=== PATIENT | female | born 1990 ===

== ENCOUNTER → 2017-07-04 | Outpatient (CLI) | payer OTHER ==
--- NOTE | 2017-07-04 08:58 | USB ---
Reason for exam: additional evaluation requested from abnormal screening. Physical Findings: Nurse Summary: 1cm nodule in the left breast at 12:30 (nurse dw). US Breast LT Left breast ultrasound includes all four quadrants, the retroareolar region and axilla. Finding demonstrates no cystic or solid lesion seen. Area of dense fibroglandular tissue corresponding to palpable abnormality. No suspicious findings. These results were verbally communicated with the patient and result sheet given to the patient on 07/04/17. ASSESSMENT: Benign, BI-RAD 2 RECOMMENDATION: Routine screening mammogram of both breasts at age 42. (or sooner if clinically indicated) Manage patient on a clinical basis.
== END | disposition home or self-care (01) ==
LOC: RADMAMWWP 07:30
PROVIDERS: ATTEND Obstetrics & Gynecology
DX: N63 Unspecified lump in breast (principal)

== ENCOUNTER 2019-03-11 13:15 | Emergency (ER) | payer OTHER ==
[2019-03-11 13:39] VITALS: BP 130/75; PULSE 85; RESP 16
[2019-03-11 14:16] LABS: Appearance,Urine Cloudy (Clear); Bacteria,Urine Rare /hpf; Bilirubin,Urine Negative (Negative); Blood,Urine Moderate (Negative); Color,Urine Yellow; Glucose,Urine (UA) Negative (Negative); Ketones,Urine Negative (Negative); Leukocyte Esterase,Urine Large (Negative); Mucus,Urine Occasional /hpf; Nitrite,Urine Positive (Negative); PH, Urine 6.5 (5.0-8.0); Protein,Urine 1+ (Negative); RBC,Urine 104 /hpf (0-5); Squamous Epithelial Cell,Urine <1 /hpf (0-4); Urobilinogen,Urine <2.0 mg/dL (<2.0); WBC,Urine 138 /hpf (0-5)
[2019-03-11] MEDS ORDERED: SODIUM CHLORIDE 0.9% 1,000 ML IV ONE (15:01)
[2019-03-11] MEDS ORDERED: cefTRIAXone 250 MG VIAL IM STA (15:53)
[2019-03-11] MEDS ORDERED: AZITHROMYCIN 500 MG TAB PO STA (15:53)
--- NOTE | 2019-03-11 16:07 | ED ---
Abdominal Pain HPI - General Chief Complaint: Abdominal Pain Stated Complaint: lower abd pain Time Seen by Provider: 03/11/19 14:38 Source: patient, RN notes reviewed, old records reviewed Mode of arrival: ambulatory Limitations: no limitations - History of Present Illness Initial Comments: 29-year-old female persist returned today with lower abdominal pain, dysuria, and alarming symptoms of her groin. Patient's concern for possibility of STDs. She states that she has no lesions her skin. Patient denies any significant discharge. She is currently on her menstrual cycle. - Related Data Home Medications Medication Instructions Recorded Confirmed Qrt-Enmz-Dfxca Acid 1 tab PO DAILY 12/16/14 07/30/16 [-U Capsule] Previous Rx's Medication Instructions Recorded HYDROcodone/APAP 7.5-325MG [Pacoima 1 each PO Q4H PRN #30 tab 08/01/16 7.5-325] Ibuprofen [Motrin] 600 mg PO Q6HR PRN #30 tab 08/01/16 Nitrofurantoin Monohyd/M-Cryst 100 mg PO Q12HR #12 cap 03/11/19 [Macrobid] Allergies Allergy/AdvReac Type Severity Reaction Status Date / Time codeine Allergy Intermediate Nausea & Verified 03/11/19 13:38 Vomiting Review of Systems ROS Statement: Those systems with pertinent positive or pertinent negative responses have been documented in the HPI. ROS Other: All systems not noted in ROS Statement are negative. 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 Alert and oriented. No distress. Limitations: no limitations General appearance: alert, in no apparent distress Head exam: Present: atraumatic, normocephalic, normal inspection Eye exam: Present: normal appearance, PERRL, EOMI. Absent: scleral icterus, conjunctival injection, periorbital swelling ENT exam: Present: normal exam, mucous membranes moist Neck exam: Present: normal inspection. Absent: tenderness, meningismus, lymphadenopathy Respiratory exam: Present: normal lung sounds bilaterally. Absent: respiratory distress, wheezes, rales, rhonchi, stridor Cardiovascular Exam: Present: regular rate GI/Abdominal exam: Present: soft, normal bowel sounds. Absent: distended, tenderness, guarding, rebound, rigid Course Vital Signs 03/11/19 03/11/19 13:35 15:15 Temperature 97.6 F 98.7 F Pulse Rate 85 Respiratory 16 Rate Blood Pressure 130/75 O2 Sat by Pulse 99 Oximetry Medical Decision Making - Lab Data Lab Results 03/11/19 03/11/19 03/11/19 Range/Units 13:54 13:54 15:46 Urine Color Yellow Urine Appearance Cloudy H (Clear) Urine pH 6.5 (5.0-8.0) Ur Specific [place] 1.030 (1.001-1.035) Urine Protein 1+ H (Negative) Urine Glucose (UA) Negative (Negative) Urine Ketones Negative (Negative) Urine Blood Moderate H (Negative) Urine Nitrite Positive H (Negative) Urine Bilirubin Negative (Negative) Urine Urobilinogen <2.0 (<2.0) mg/dL Ur Leukocyte Esterase Large H (Negative) Urine RBC 104 H (0-5) /hpf Urine WBC 138 H (0-5) /hpf Urine WBC Clumps Occasional H (None) /hpf Ur Squamous Epith Cells <1 (0-4) /hpf Urine Bacteria Rare H (None) /hpf Urine Mucus Occasional H (None) /hpf Urine HCG, Qual Not Detected (Not Detectd) Trichomonas Ag (Rapid) Negative (Negative) Disposition Clinical Impression: UTI (urinary tract infection), Pelvic lymphadenopathy Disposition: HOME SELF-CARE Condition: Good Instructions (If sedation given, give patient instructions): Urinary Tract Infection in Women (DC) Additional Instructions: Patient advised to follow-up with primary care doctor. Return to the emergency department if any alarming signs or symptoms occur. Prescriptions: Nitrofurantoin Monohyd/M-Cryst [Macrobid] 100 mg PO Q12HR #12 cap Is patient prescribed a controlled substance at d/c from ED?: No Referrals: None,Stated [Primary Care Provider] - 1-2 days Lissett Echevarria MD [STAFF PHYSICIAN] - 1-2 days Time of Disposition: 16:06
[2019-03-11 16:25] VITALS: TEMP 97.8
[2019-03-12 15:10] LABS: C. trachomatis,PCR Negative (Neg,Equiv); Chlamydia trachomatis Source Vagina; N. gonorrhoeae,PCR Negative (Neg,Equiv); Neisseria Source Vagina
== END 2019-03-11 16:28 | disposition home or self-care (01) ==
LOC: EC 13:15
DX: N39.0 Urinary tract infection, site not specified (principal); R59.0 Localized enlarged lymph nodes; F17.200 Nicotine dependence, unspecified, uncomplicated; Z88.5 Allergy status to narcotic agent
CPT/HCPCS: 81001; 81025; 87808; 87491; 87591; 87070; 87205; 99284; 96372; J0696

== ENCOUNTER 2019-07-26 14:48 | Emergency (ER) | payer OTHER ==
[2019-07-26 15:00] VITALS: BP 119/66; PULSE 88; RESP 18; TEMP 98.8
--- NOTE | 2019-07-26 15:11 | ED ---
General Adult HPI - General Chief complaint: Upper Respiratory Infection Stated complaint: Cough Time Seen by Provider: 07/26/19 15:03 Source: patient, RN notes reviewed, old records reviewed Mode of arrival: ambulatory - History of Present Illness Initial comments: 29-year-old female patient who is 13 weeks presents to ED for chief complaint of 2 days cough, rhinitis, sore throat, otalgia. Patient denies any chest pain or shortness breath. Denies abdominal pain, nausea vomiting diarrhea, dysuria. Patient has a history of exercise-induced asthma. Denies any other complaints. Systemic: Pt denies fatigue, fever/chills, rash. Pt denies weakness, night sweats, weight loss. Neuro: Pt denies headache, visual disturbances, syncope or pre-syncope. HEENT: Pt denies ocular discharge or irritation, rhinorrhea, notable lymphadenopathy. Cardiopulmonary: Pt denies chest pain, SOB, heart palpitations, dyspnea on exertion. Abdominal/GI: Pt denies abdominal pain, n/v/d. : Pt denies dysuria, burning w/ urination, frequency/urgency. Denies new onset urinary or bowel incontinence. MSK: Pt denies myalgia, loss of strength or function in extremities. Neuro: Pt denies new onset weakness, paresthesias. - Related Data Home Medications Medication Instructions Recorded Confirmed Sui-Huwo-Lbonx Acid 1 tab PO DAILY 12/16/14 07/30/16 [-U Capsule] Allergies Allergy/AdvReac Type Severity Reaction Status Date / Time codeine Allergy Intermediate Nausea & Verified 07/26/19 14:57 Vomiting Review of Systems ROS Statement: Those systems with pertinent positive or pertinent negative responses have been documented in the HPI. ROS Other: All systems not noted in ROS Statement are negative. 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 HEENT: NC/AT, trachea midline, neck supple, no lymphadenopathy. Posterior pharynx mildly-erythematous, without exudates. External ears appear normal, without discharge. TM pale salvador bilaterally. Mucous membranes moist. Eyes PERRLA, EOM intact. There is no scleral icterus. No pallor noted. Cardiopulmonary: RRR, no murmurs, rubs or gallops, no JVD noted. Lungs CTAB in anterior and posterior graham. No peripheral edema. Abdominal exam: Abdomen soft and non-distended. Abdomen non-tender to palpation in all 4 quadrants. Bowel sounds active in LLQ. No hepatosplenomegaly. No ecchymosis Neuro: CN II-XII grossly intact. No nuchal rigidity. No raccon eyes, no perry sign, no hemotympanum. No cervical spinal tenderness. MSK: No posterior calf tenderness bilaterally, homans sign negative bilaterally. Posterior tibialis and radial pulse +2 bilaterally. Sensation intact in upper and lower extremities. Full active ROM in upper and lower extremities, 5/5 stregnth. Course Vital Signs 07/26/19 14:57 Temperature 98.8 F Pulse Rate 88 Respiratory 18 Rate Blood Pressure 119/66 O2 Sat by Pulse 99 Oximetry Medical Decision Making - Medical Decision Making 29-year-old female patient who is 13 weeks presents to ED for chief complaint of 2 days cough, rhinitis, sore throat, otalgia. Patient denies any chest pain or shortness breath. Denies abdominal pain, nausea vomiting diarrhea, dysuria. Patient has a history of exercise-induced asthma. Denies any other complaints. Pt VSS, afebrile. Physical exam displayed: Posterior pharynx mildly-erythematous, without exudates. Otherwise no acute findings. Abdomen soft, nontender. Laboratory investigations revealed negative influenza, negative group A strep.Offered chest x-ray patient. Risk and benefits were discussed. Patient wishes to have chest x-ray performed. The heart tones 135. Patient reports that she had recent normal ultrasound last week. Chest x-ray did not display any acute process. She likely experiencing a viral syndrome. Patient was discharged, will follow up with primary care provider tomorrow. Case disucssed with Dr. Darden. - Lab Data Lab Results 07/26/19 07/26/19 Range/Units 15:38 15:40 Influenza Type A RNA Not Detected (Not Detectd) Influenza Type B (PCR) Not Detected (Not Detectd) Group A Strep Rapid Negative (Negative) Disposition Clinical Impression: Viral syndrome Disposition: HOME SELF-CARE Condition: Stable Instructions (If sedation given, give patient instructions): Viral Syndrome (ED) Additional Instructions: Patient to adhere to previously discussed treatment plan and will take medication(s) as directed. Patient to follow up with PCP in 1-2 days. Patient to return to ED if symptoms do not improve. Follow-up with [facility] tomorrow. Continue taking vitamins. Return to ER if condition worsens in any way. Is patient prescribed a controlled substance at d/c from ED?: No Referrals: None,Stated [Primary Care Provider] - 1-2 days
--- NOTE | 2019-07-26 15:58 | XR ---
EXAMINATION TYPE: XR chest 2V DATE OF EXAM: 07/26/2019 COMPARISON: NONE HISTORY: Cough TECHNIQUE: Frontal and lateral views of the chest are obtained. FINDINGS: There is no focal air space opacity, pleural effusion, or pneumothorax seen. The cardiac silhouette size is within normal limits. The osseous structures are intact. IMPRESSION: No acute cardiopulmonary process.
== END 2019-07-26 16:21 | disposition home or self-care (01) ==
LOC: EC 14:48
DX: O98.511 Other viral diseases complicating pregnancy, first trimester (principal); B34.9 Viral infection, unspecified; O99.331 Smoking (tobacco) complicating pregnancy, first trimester; F17.200 Nicotine dependence, unspecified, uncomplicated; Z3A.13 13 weeks gestation of pregnancy; Z88.5 Allergy status to narcotic agent
CPT/HCPCS: 71046; 87081; 87430; 87502; 99284